=== PATIENT | female | born 1980 | race African-American/Black ===

== ENCOUNTER 2019-03-31 13:48 | Emergency (ER) | payer MEDICAID ==
[~2019-03-31] VITALS: Ht 162.6 cm; Wt 77.1 kg
[2019-03-31 13:53] VITALS: BP 108/71
--- NOTE | 2019-03-31 14:00 | NUR ---
ED Nurse Note: Patient walked into ED from home due to asthma. patient reports she has asthma attack since last night but her meds ran out. (VENTOLIN, MONTELUKAST SOD 10MG, AND FLUTICASONE) patient is 98% RA. patient is alert awake x4 ambulatory steady gait, able to speak in full sentences.
[2019-03-31] MEDS: Albuterol ud Inhalation HHN SCH ×3 (14:49→14:55)
--- NOTE | 2019-03-31 15:09 | Emergency Room Report ---
History of Present Illness General Chief Complaint: Asthma Source: Patient Present Illness HPI 38-year-old female presents to the emergency department complaining of cough, wheeze and exacerbation of her asthma status post running out of her medications. Patient states that she typically takes montelukast, Ventolin and she also has a nebulizer at home with no nebulized vials. Patient denies fevers or chills. Patient denies chest pain or palpitations. Patient denies upper respiratory symptoms such as sore throat, earaches, runny nose/nasal congestion. She reports she does have environmental allergies which can trigger her asthma exacerbations. No other aggravating or relieving factors. She denies pain. Allergies: Uncoded Allergies: PEANUTS (Allergy, Unknown, 03/31/19) Patient History Past Medical History: see triage record Past Surgical History: none Pertinent Family History: none Now: No Reviewed Nursing Documentation: PMH: Agreed; PSxH: Agreed Nursing Documentation-PMH Past Medical History: No Stated History Review of Systems All Other Systems: negative except mentioned in HPI Physical Exam Vital Signs Date Time Temp Pulse Resp B/P (MAP) Pulse Ox O2 Delivery O2 Flow Rate FiO2 03/31/19 13:53 97.5 80 19 108/71 (83) 98 Room Air Sp02 EP Interpretation: reviewed, normal General Appearance: no apparent distress, alert, GCS 15, non-toxic Head: normocephalic, atraumatic Eyes: bilateral eye normal inspection, bilateral eye PERRL ENT: hearing grossly normal, normal voice Neck: full range of motion Respiratory: chest non-tender, lungs clear, speaking full sentences, wheezing Cardiovascular #1: regular rate, rhythm, normal capillary refill Musculoskeletal: back normal, gait/station normal, normal range of motion, non- tender Neurologic: alert, oriented x3, responsive, motor strength/tone normal, sensory intact, speech normal, grossly normal Psychiatric: judgement/insight normal Skin: no rash Lymphatic: no adenopathy Medical Decision Making PA Attestation Dr. Cunningham is my supervising Physician whom patient management has been discussed with. Diagnostic Impression: Primary Impression: Asthma exacerbation Qualified Codes: J45.31 - Mild persistent asthma with (acute) exacerbation ER Course 38-year-old female presents to the emergency department complaining of cough, wheeze and exacerbation of her asthma status post running out of her medications. Patient states that she typically takes montelukast, Ventolin and she also has a nebulizer at home with no nebulized vials. Patient denies fevers or chills. Patient denies chest pain or palpitations. Patient denies upper respiratory symptoms such as sore throat, earaches, runny nose/nasal congestion. She reports she does have environmental allergies which can trigger her asthma exacerbations. No other aggravating or relieving factors. She denies pain. Ddx considered but are not limited to asthma exacerbation, CHF, URI, pneumonia, PE, strep pharyngitis, meningitis. Vital signs: Pt. is afebrile, VS are WNL H&PE are most consistent with asthma exacerbation ORDERS: none required at this time, the diagnosis is clinical ED INTERVENTIONS: -Albuterol nebulized treatment. -Prednisone PO - re-examination post nebulized treatment lungs are CTA bilaterally. DISCHARGE: At this time pt. is stable for d/c to home. Will provide printed patient care instructions, and any necessary prescriptions. Care plan and follow up instructions have been discussed with the patient prior to discharge. Last Vital Signs Date Time Temp Pulse Resp B/P (MAP) Pulse Ox O2 Delivery O2 Flow Rate FiO2 03/31/19 14:55 72 20 100 60 20 100 03/31/19 13:53 97.5 108/71 Room Air Status: improved Disposition: HOME, SELF-CARE Condition: Stable Scripts Montelukast Sodium* (SINGULAIR*) 10 Mg Tablet 10 MG ORAL DAILY, #30 TAB Prov: Jennifer Adams 03/31/19 Cetirizine Hcl* (ZYRTEC*) 10 Mg Tablet 10 MG ORAL DAILY, #30 TAB 0 Refills Prov: Jennifer Adams 03/31/19 Albuterol Sulfate* (ALBUTEROL SULFATE HHN*) 2.5 Mg/3 Ml Vial.neb 3 ML INH Q6H PRN for Shortness of Breath, #30 EA 0 Refills Prov: Jennifer Adams 03/31/19 Albuterol Sulfate* (ALBUTEROL SULFATE MDI*) 8.5 Gm Hfa.aer.ad 2 PUFF INH Q3H, #1 INH 0 Refills Prov: Jennifer Adams 03/31/19 Referrals: NON PHYSICIAN (PCP) Patient Instructions: Asthma, Adult Additional Instructions: Take medications as directed. Follow up with a Primary Care Provider in 3-5 days, even if your symptoms have resolved. --Please review list of primary care clinics, if you do not already have a primary care provider Return sooner to ED if new symptoms occur, or current symptoms become worse. - Please note that this Emergency Department Report was dictated using [employer] nurse technology software, occasionally this can lead to erroneous entry secondary to interpretation by the dictation equipment. Jennifer Adams Mar 31, 2019 15:09
[2019-03-31] MEDS ORDERED: ALBUTEROL SULF8.5 GM INH (15:11)
[2019-03-31] MEDS ORDERED: ZYRTEC10 MG ORAL (15:11)
[2019-03-31] MEDS ORDERED: SINGULAIR10 MG ORAL (15:11)
[2019-03-31] MEDS ORDERED: ALBUTEROL2.5 MG/3 M INH (15:11)
[2019-03-31 15:25] VITALS: BP 108/71
--- NOTE | 2019-03-31 15:25 | NUR ---
ER DISCHARGE NOTE: Patient is cleared to be discharged per JP HERNANDEZ pt is aox4, on room air, with stable vital signs. pt was given dc and prescription instructions, pt was able to verbalize understanding, pt id band removed without complications. pt is able to ambulate with steady gait. pt took all belongings.
== END 2019-03-31 15:20 | disposition home or self-care (01) ==
LOC: EMR 14:15
DX: J45.31 Mild persistent asthma with (acute) exacerbation (principal); Z91.010 Allergy to peanuts
CPT/HCPCS: 94640; J7512; Z7502; 99284

== ENCOUNTER 2019-06-05 20:57 | Emergency (ER) | payer MEDICAID ==
[~2019-06-05] VITALS: Ht 162.6 cm; Wt 77.1 kg
[~2019-06-05 20:57] MED LIST: ALBUTEROL SULF8.5 GM INH; ALBUTEROL2.5 MG/3 M INH; SINGULAIR10 MG ORAL; ZYRTEC10 MG ORAL
--- NOTE | 2019-06-05 21:12 | NUR ---
ER Nurse Note: Pt walked in c/o "asthma attacks" since one day. Pt stated it has been more frequent and is experiencing one currently. Pt is out of her albuterol; last taken 06/04. Wheezes heard. O2 at 98% RA
[2019-06-05 21:14] VITALS: BP 107/71
[2019-06-05] MEDS: Albuterol ud Inhalation HHN SCH ×3 (21:23→21:50)
[2019-06-05] MEDS: Ipratropium 0.02% Inh Soln 2.5ml UD HHN SCH ×3 (21:23→21:50)
[2019-06-05] MEDS ORDERED: PREDNISONE50 MG ORAL (21:52)
[2019-06-05] MEDS ORDERED: ALBUTEROL SULF8.5 GM INH (21:52)
--- NOTE | 2019-06-05 21:52 | Emergency Room Report ---
History of Present Illness General Chief Complaint: Asthma Source: Patient Present Illness HPI 38-year-old female presents with acute shortness of breath started about 1 day ago, aggravated by not having her albuterol, she ran out of all butyryl 1 day ago, alleviating factors albuterol severity is mild, patient endorses some shortness of breath, cough, wheezing patient presents for evaluation. Allergies: Uncoded Allergies: CATS (Allergy, Unknown, 06/05/19) PEANUTS (Allergy, Unknown, 03/31/19) SEASONAL (Allergy, Unknown, 06/05/19) Patient History Past Medical History: see triage record Last Menstrual Period: 04/18/19 Now: No : 0 Para: 0 Reviewed Nursing Documentation: PMH: Agreed; PSxH: Agreed Nursing Documentation-PMH Hx Asthma: Yes Review of Systems All Other Systems: negative except mentioned in HPI Physical Exam Vital Signs Date Time Temp Pulse Resp B/P (MAP) Pulse Ox O2 Delivery O2 Flow Rate FiO2 06/05/19 20:59 98.1 81 18 107/71 (83) 98 Room Air 06/05/19 21:22 21 Sp02 EP Interpretation: reviewed, normal General Appearance: well appearing, no apparent distress, alert Head: normocephalic, atraumatic Eyes: bilateral eye PERRL, bilateral eye EOMI ENT: uvula midline, moist mucus membranes Neck: supple, thyroid normal, supple/symm/no masses Respiratory: no respiratory distress, no retraction, no accessory muscle use, decreased breath sounds, wheezing - Mild Cardiovascular #1: normal peripheral pulses, regular rate, rhythm, no edema, no gallop, no murmur Gastrointestinal: non tender, soft, no guarding, no rebound Musculoskeletal: normal inspection Neurologic: alert, oriented x3 Psychiatric: mood/affect normal Skin: no rash, warm/dry Medical Decision Making Diagnostic Impression: Primary Impression: Asthma attack Qualified Codes: J45.41 - Moderate persistent asthma with (acute) exacerbation ER Course 38-year-old female presents with acute asthma exacerbation secondary to running out of her medications, low suspicion for pneumonia low suspicion for ACS Patient improved status post AllanoNeb's reevaluation at 9:51 PM steroid burst will be started, albuterol be started Disposition home with return precautions Last Vital Signs Date Time Temp Pulse Resp B/P (MAP) Pulse Ox O2 Delivery O2 Flow Rate FiO2 06/05/19 21:35 78 20 97 Room Air 21 06/05/19 21:14 98.1 107/71 Disposition: HOME, SELF-CARE Condition: Stable Scripts Albuterol Sulfate* (ALBUTEROL SULFATE MDI*) 8.5 Gm Hfa.aer.ad 2 PUFF INH Q4H PRN for Shortness of Breath, #2 EA 0 Refills Prov: El Ramirez MD 06/05/19 Prednisone* (PREDNISONE*) 50 Mg Tablet 50 MG ORAL DAILY, #4 TAB 0 Refills Prov: El Ramirez MD 06/05/19 Referrals: NOT CHOSEN IPA/,REFERRING (PCP) [facility]. [facility] Patient Instructions: Asthma, Adult Additional Instructions: The patient was provided with discharge instructions, notified to follow-up with a primary care doctor and or specialist in the next 24-48 hours, and to return to the ED if they have worsening of their symptoms. Please note that this report is being documented using [employer] technology. This can lead to erroneous entry secondary to incorrect interpretation by the dictating instrument. El Ramirez MD Jun 05, 2019 21:52
[2019-06-05 22:40] VITALS: BP 123/76
--- NOTE | 2019-06-05 22:40 | NUR ---
ER DISCHARGE NOTE: Patient is cleared to be discharged per ERMD, pt is aox4, on room air, with stable vital signs. pt was given dc and prescription instructions, pt was able to verbalize understanding, pt id band removed without complications. pt is able to ambulate with steady gait. pt took all belongings.
[2019-06-05] MEDS ORDERED: ALBUTEROL2.5 MG/3 M HHN (22:43)
== END 2019-06-05 22:40 | disposition home or self-care (01) ==
LOC: EMR 21:42
DX: J45.41 Moderate persistent asthma with (acute) exacerbation (principal); Z91.09 Other allergy status, other than to drugs and biological substances; Z91.010 Allergy to peanuts
CPT/HCPCS: 81025; 94640; 94664; J7512; Z7502; 99284

== ENCOUNTER 2019-08-30 18:02 | Emergency (ER) | payer MEDICAID ==
[~2019-08-30] VITALS: Ht 162.6 cm; Wt 77.1 kg
[~2019-08-30 18:02] MED LIST changes: +ALBUTEROL2.5 MG/3 M HHN; +PREDNISONE50 MG ORAL
--- NOTE | 2019-08-30 18:15 | NUR ---
ED Nurse Note: PT WALKED IN DUE TO ASTHMA EXACERBATION. PT RAN OUT OF MEDICATIONS AND LAST INHALER TAKEN YESTERDAY. AAO X4, AMBULATORY WITH SOB AT REST WITH WHEEZING.
[2019-08-30 18:21] VITALS: BP 120/71
--- NOTE | 2019-08-30 18:43 | Emergency Room Report ---
History of Present Illness General Chief Complaint: Asthma Source: Patient, Medical Record Present Illness HPI Disclaimer: Please note that this report is being documented using [employer] technology. This can lead to erroneous entry secondary to incorrect interpretation by the dictating instrument. HPI: 39-year-old female with history of asthma presents for evaluation of wheezing. Symptoms worsening over the past few days. Approximately 10 days ago she was seen in emergency department and treated for a asthma exacerbation. She has finished her course of prednisone. She ran out of her breathing treatments and her albuterol inhaler 2 days ago which is what is causing her worsening symptoms. Denies any new cough, fever or chills or vomiting. She has previously been on Singulair but was taken off several years ago by her previous doctor for unknown reasons. She currently does not have a PMD. She is in the process of applying for new PMD. Allergies: Uncoded Allergies: CATS (Allergy, Unknown, 06/05/19) PEANUTS (Allergy, Unknown, 03/31/19) SEASONAL (Allergy, Unknown, 06/05/19) Patient History Last Menstrual Period: 08/28/19 Nursing Documentation-[facility] Past Medical History: No History, Except For Hx Asthma: Yes Review of Systems All Other Systems: negative except mentioned in HPI Physical Exam Vital Signs Date Time Temp Pulse Resp B/P (MAP) Pulse Ox O2 Delivery O2 Flow Rate FiO2 08/30/19 18:10 98.2 75 18 108/73 (85) 97 Room Air General: Awake and alert, no acute distress HEENT: NC/AT. EOMI. Cardiovascular: RRR. S1 and S2 normal. No murmur appreciated Resp: Normal work of breathing. No cough, faint expiratory wheezes at the bases bilaterally. No crackles. Skin: Intact. No abrasions, laceration or rash over the exposed skin MSK: Normal tone and bulk. Moving all extremities. No obvious deformity. Neuro: Awake and alert. Mentating appropriately. Medical Decision Making Diagnostic Impression: Primary Impression: Asthma ER Course 39-year-old female with a history of asthma presents for evaluation of 2 days worsening wheezing after running out of her albuterol inhaler and breathing treatments at home. She recently finished a course of prednisone. Denies any new cough or fever. Do not believe she requires emergent labs or imaging but will give a breathing treatment for his. We will refill her medications and restart Singulair. Will refer her to clinics in the area accepting new patients. Discussed reasons to return to the emergency department. She understands and agrees with treatment plan. Last Vital Signs Date Time Temp Pulse Resp B/P (MAP) Pulse Ox O2 Delivery O2 Flow Rate FiO2 08/30/19 18:21 98.2 55 19 120/71 100 Room Air Disposition: HOME, SELF-CARE Condition: Stable Scripts Cetirizine Hcl* (ZYRTEC*) 10 Mg Tablet 10 MG ORAL DAILY, #30 TAB 0 Refills Prov: Wilner Marquez MD 08/30/19 Albuterol Sulfate* (ALBUTEROL SULFATE HHN*) 2.5 Mg/3 Ml Vial.neb 2.5 MG HHN Q4H PRN for Shortness of Breath, #50 VIAL Prov: Wilner Marquez MD 08/30/19 Albuterol Sulfate* (ALBUTEROL SULFATE MDI*) 8.5 Gm Hfa.aer.ad 2 PUFF INH Q4H PRN for cough/wheezing, #1 EA 0 Refills Prov: Wilner Marquez MD 08/30/19 Montelukast Sodium* (SINGULAIR*) 10 Mg Tablet 10 MG ORAL DAILY, #30 TAB Prov: Wilner Marquez MD 08/30/19 Wilner Marquez MD Aug 30, 2019 18:43
[2019-08-30] MEDS ORDERED: ALBUTEROL2.5 MG/3 M HHN (18:45)
[2019-08-30] MEDS ORDERED: Albuterol/Ipratropium 3ml neb HHN ONE ×2 (18:45→19:15)
[2019-08-30] MEDS ORDERED: ALBUTEROL SULF8.5 GM INH (18:45)
[2019-08-30] MEDS ORDERED: SINGULAIR10 MG ORAL (18:45)
--- NOTE | 2019-08-30 18:59 | NUR ---
ED Nurse Note: RT AT THE BED SIDE FOR BREATHING TREATMENT.
[2019-08-30] MEDS ORDERED: ZYRTEC10 MG ORAL (19:07)
--- NOTE | 2019-08-30 19:11 | NUR ---
HAND-OFF: Report given to OMAR MULLEN RN.
[2019-08-30 19:30] VITALS: BP 120/71
--- NOTE | 2019-08-30 19:30 | NUR ---
ER DISCHARGE NOTE: Patient is cleared to be discharged per ERMD after 2nd breathing tx, pt is aox4, on room air, with stable vital signs. pt was given dc and prescription instructions, pt was able to verbalize understanding, pt id band and iv site removed without complications. pt is able to ambulate with steady gait. pt took all belongings.
== END 2019-08-30 19:30 | disposition home or self-care (01) ==
LOC: EMR 19:06
DX: J45.909 Unspecified asthma, uncomplicated (principal); Z91.010 Allergy to peanuts; Z91.048 Other nonmedicinal substance allergy status
CPT/HCPCS: 99283; J7620

== ENCOUNTER 2019-10-22 15:49 | Emergency (ER) | payer MEDICAID ==
[~2019-10-22] VITALS: Ht 162.6 cm; Wt 80.7 kg
[2019-10-22 15:40] VITALS: BP 139/88
--- NOTE | 2019-10-22 15:45 | NUR ---
ED Nurse Note: Pt from home walked in due to coughing and SOB for a couple of days. Reports wheezing and states that she ran out of HHN albuterol. speaks in full sentences. Denies recent travel or diarrhea. AAO x4, ambulatory with non labored breathing.
--- NOTE | 2019-10-22 16:07 | Emergency Room Report ---
History of Present Illness General Chief Complaint: Asthma Source: Patient Present Illness HPI 39-year-old female presents to the emergency department complaining of increased coughing, wheezing and feeling short of breath status post running out of her albuterol inhaler 2 days ago. Patient reports that this week she has had to use her inhaler more than normal and she has been out of her Singulair for over a week as well. Patient denies hemoptysis. Fevers, chills, sputum production or pain. She denies chest pain or palpitations. Patient reports that she has a nebulizer at home and does not have any liquid albuterol either. Patient states she is currently switching primary care providers and her new provider is not prescribing her anything until she has her first physical. Denies recent travel. Denies contact with persons who have tested positive for or are under investigation/quarantine for COVID-19. Allergies: Uncoded Allergies: CATS (Allergy, Unknown, 06/05/19) PEANUTS (Allergy, Unknown, 03/31/19) SEASONAL (Allergy, Unknown, 06/05/19) COVID-19 Screening Contact w/high risk pt: No Recent Travel to affected area: No Experienced COVID-19 symptoms?: Yes COVID-19 symptoms experienced: Cough Patient History Past Medical History: see triage record Past Surgical History: none Pertinent Family History: none Last Menstrual Period: 10/11/19 Now: No Reviewed Nursing Documentation: PMH: Agreed; PSxH: Agreed Nursing Documentation-PMH Past Medical History: No History, Except For Hx Asthma: Yes Review of Systems All Other Systems: negative except mentioned in HPI Physical Exam Vital Signs Date Time Temp Pulse Resp B/P (MAP) Pulse Ox O2 Delivery O2 Flow Rate FiO2 10/22/19 15:40 98.2 114 19 139/88 97 Room Air Sp02 EP Interpretation: reviewed, normal General Appearance: well appearing, no apparent distress, alert, GCS 15, non- toxic Head: normocephalic, atraumatic Eyes: bilateral eye normal inspection, bilateral eye PERRL ENT: hearing grossly normal, normal voice Neck: full range of motion Respiratory: chest non-tender, lungs clear, no rhonchi, no respiratory distress , no accessory muscle use, speaking full sentences, wheezing - expiratory wheezes bilaterally- mild Cardiovascular #1: regular rate, rhythm, no edema, normal capillary refill, tachycardia Gastrointestinal: normal bowel sounds, non tender, soft Musculoskeletal: normal range of motion, gait/station normal, non-tender Neurologic: alert, motor strength/tone normal, oriented x3, sensory intact, responsive, speech normal Psychiatric: judgement/insight normal Skin: normal color, normal inspection Lymphatic: no adenopathy Medical Decision Making PA Attestation Dr. Hollingsworth is my supervising Physician whom patient management has been discussed with. Diagnostic Impression: Primary Impression: Asthma exacerbation Qualified Codes: J45.31 - Mild persistent asthma with (acute) exacerbation Additional Impression: Suspected COVID-19 virus infection ER Course Pt. presents to the ED c/o cough and wheezing x 2 days, Pt. has a hx of asthma, and inhaler treatments at home are not helping. Ddx considered but are not limited to asthma exacerbation, CHF, URI, pneumonia, PE, strep pharyngitis, meningitis, COVID-19 Vital signs: Pt. tachycardic, remaining VS are WNL Pt. is afebrile --- O2 Sat is 97% RA H&PE are most consistent with urgent need for medication refills & asthma exacerbation--- patient is nontoxic in appearance, not hypoxic or demonstrating respiratory distress. Patient is currently in no acute distress. ORDERS: none required at this time, the diagnosis is clinical ED INTERVENTIONS: - none required at this time. DISCHARGE: At this time pt. is stable for d/c to home. Will provide printed patient care instructions, and any necessary prescriptions. Care plan and follow up instructions have been discussed with the patient prior to discharge. Last Vital Signs Date Time Temp Pulse Resp B/P (MAP) Pulse Ox O2 Delivery O2 Flow Rate FiO2 10/22/19 15:44 114 19 Room Air 10/22/19 15:40 98.2 139/88 (105) 97 Disposition: HOME, SELF-CARE Condition: Stable Scripts Guaifenesin/D-Methorphan Hb/Pe (ROBITUSSIN COUGH-COLD CF LIQ*) 118 Ml Liquid 10 ML ORAL Q8H PRN for FOR COUGH, #118 ML Prov: Jennifer Adams 10/22/19 Albuterol Sulfate* (Albuterol Sulfate Hfa*) 8.5 Gm Hfa.aer.ad 2 PUFF INH Q3H, #1 INH 1 Refill Prov: Jennifer Adams 10/22/19 Albuterol Sulfate* (ALBUTEROL SULFATE HHN*) 2.5 Mg/3 Ml Vial.neb 3 ML INH Q6H PRN for Shortness of Breath, #30 EA 1 Refill Prov: Jennifer Adams 10/22/19 Montelukast Sodium* (SINGULAIR*) 10 Mg Tablet 10 MG ORAL DAILY, #30 TAB Prov: Jennifer Adams 10/22/19 Referrals: NON PHYSICIAN (PCP) Patient Instructions: Asthma, Adult Additional Instructions: Take medications as directed. Follow up with a Primary Care Provider in 3-5 days, even if your symptoms have resolved. Return sooner to ED if new symptoms occur, or current symptoms become worse. - Please note that this Emergency Department Report was dictated using [employer] tender technology software, occasionally this can lead to erroneous entry secondary to interpretation by the dictation equipment. Jennifer Adams Oct 22, 2019 16:07
[2019-10-22] MEDS ORDERED: SINGULAIR10 MG ORAL (16:09)
[2019-10-22] MEDS ORDERED: ROBITUSSIN COU118 M1 ORAL (16:09)
[2019-10-22] MEDS ORDERED: ALBUTEROL2.5 MG/3 M INH (16:09)
[2019-10-22] MEDS ORDERED: ALBUTEROL SULF8.5 G1 INH (16:09)
[2019-10-22 16:15] VITALS: BP 129/85
--- NOTE | 2019-10-22 16:15 | NUR ---
ER DISCHARGE NOTE: Patient is cleared to be discharged per PA, pt is aox4, on room air, with stable vital signs. pt was given dc and prescription instructions, pt was able to verbalize understanding, pt id band removed. pt is able to ambulate with steady gait. pt took all belongings.
== END 2019-10-22 16:15 | disposition home or self-care (01) ==
LOC: EDBD 15:49 → EMR 15:59
DX: J45.31 Mild persistent asthma with (acute) exacerbation (principal); R05 Cough; Z91.010 Allergy to peanuts; Z91.09 Other allergy status, other than to drugs and biological substances
CPT/HCPCS: 99282